=== PATIENT | female | born 1945 | race Caucasian/White ===

== ENCOUNTER 2017-07-05 08:55 | Emergency (ER) | payer MEDICARE ==
[2017-07-05] MEDS: ONDANSETRON ODT 4 MG TAB.RAPDIS. PO (09:30)
[2017-07-05 09:41] LABS: ADD MAN DIFF? NO; INFLUENZA A PATIENT NEGATIVE (NEGATIVE); INFLUENZA B PATIENT NEGATIVE (NEGATIVE)
[2017-07-05 09:42] LABS: OBC FLU VALID
[2017-07-05 09:48] LABS: NEGATIVE OBC STREP NEG; POSITIVE OBC STREP POS
[2017-07-05 09:49] LABS: BASO # 0.1 x10^3/uL (0.0-0.2); BASO % 1 % (0-3); EOS # 0.2 x10^3/uL (0.0-0.7); EOS % 4 % (0-3); HEMATOCRIT 40.2 % (36.0-47.0); LYMPH # 1.2 x10^3/uL (1.0-4.8); LYMPH % 17 % (24-48); MEAN CORPUSCULAR HEMOGLOBIN 27 pg (25-35); MEAN CORPUSCULAR HGB CONC 32 g/dL (31-37); MEAN CORPUSCULAR VOLUME 85 fL (79-100); MONO # 0.4 x10^3/uL (0.0-1.1); MONO % 6 % (0-9); NEUT # 5.1 x10^3uL (1.8-7.7); NEUT % 73 % (31-73); PLATELET COUNT 172 x10^3/uL (140-400); RED BLOOD COUNT 4.74 x10^6/uL (3.50-5.40); RED CELL DISTRIBUTION WIDTH 17.2 % (11.5-14.5)
[2017-07-05 10:13] LABS: ANION GAP 14 (6-14); BLOOD UREA NITROGEN 17 mg/dL (7-20); BUN/CREATININE RATIO 21 (6-20); CARBON DIOXIDE 22 mmol/L (21-32); CHLORIDE 104 mmol/L (98-107); CREATININE 0.8 mg/dL (0.6-1.0); GFR 70.9; GLUCOSE 170 mg/dL (70-99); POTASSIUM 4.6 mmol/L (3.5-5.1); SODIUM 140 mmol/L (136-145)
[2017-07-05 10:19] LABS: ALBUMIN 3.3 g/dL (3.4-5.0); ALK PHOS 56 U/L (46-116); ALT (SGPT) 14 U/L (14-59); AMYLASE 61 U/L (25-115); AST (SGOT) 15 U/L (15-37); LIPASE 231 U/L (73-393); TOTAL BILIRUBIN 0.5 mg/dL (0.2-1.0); TOTAL PROTEIN 6.7 g/dL (6.4-8.2)
[2017-07-05] MEDS ORDERED: IOHEXOL 300 MG/ML 100ML VIAL. (10:21)
[2017-07-05] MEDS: IOHEXOL 300 MG/ML 100ML VIAL. IV (10:23)
[2017-07-05] MEDS ORDERED: CONTRAST GIVEN MC (10:30)
[2017-07-05] MEDS: KETOROLAC 15 MG/ML VIAL. IV (10:39)
[2017-07-05] MEDS: IV NORMAL SALINE 1000ML BAG 1,000 ML IV (10:40)
[2017-07-05 11:17] LABS: BILIRUBIN,URINE NEGATIVE (NEG); CLARITY,URINE CLEAR; COLOR,URINE YELLOW; GLUCOSE,URINE NEGATIVE (NEG); NITRITE,URINE NEGATIVE (NEG); PH,URINE 5.5; PROTEIN,URINE NEGATIVE (NEG-TRACE); UROBILINOGEN,URINE 0.2 mg/dL (0.2 mg/dL)
[2017-07-05 11:22] LABS: SQUAMOUS EPITHELIAL CELL,UR MOD /LPF
[2017-07-05 11:23] LABS: BACTERIA,URINE FEW /HPF (0-FEW); RBC,URINE 0 /HPF (0-2); WBC,URINE OCC /HPF (0-4)
== END 2017-07-05 12:27 | disposition left against medical advice (07) ==
LOC: ER 08:55
DX: K91.872 Postprocedural seroma of a digestive system organ or structure following a digestive system procedure (principal); Y84.8 Other medical procedures as the cause of abnormal reaction of the patient, or of later complication, without mention of misadventure at the time of the procedure; Z88.0 Allergy status to penicillin; Z88.1 Allergy status to other antibiotic agents; Z88.5 Allergy status to narcotic agent
CPT/HCPCS: 36415; 71046; 74177; 80053; 81001; 82150; 83690; 85025; 87070; 87804; 87804-59; 87880; 96361; 96374; 99285-25; J1885; J7030; Q0162; Q9967